=== PATIENT | female | born 1980 | race Caucasian/White ===

== ENCOUNTER 2017-01-21 06:28 | Inpatient (IN) | payer OTHER ==
[~2017-01-21] VITALS: Ht 180.3 cm; Wt 98.7 kg
[~2017-01-21 06:28] MED LIST: CYCL-259 PO; DICLOFENAC PO; TRAM50TA2 PO
[2017-01-21 06:59] LABS: HCG UR LOT HCG7030192
[2017-01-21] MEDS ORDERED: LACTATED RINGERS 1,000 ML IV SCH (07:00)
[2017-01-21 07:03] LABS: HCG UR OBC PASS
[2017-01-21] MEDS ORDERED: BUPIVACAINE/PF 0.5% ONE (07:05)
[2017-01-21] MEDS ORDERED: EPINEPHRINE 1 MG/ML, 1ML ONE (07:05)
[2017-01-21] MEDS ORDERED: THROMBIN 5,000 UNIT VIAL TP ONE (07:05)
[2017-01-21] MEDS ORDERED: LIDOCAINE 1%, 2ML ONE (07:05)
[2017-01-21] MEDS ORDERED: BACITRACIN 50,000 UNIT ONE (07:06)
[2017-01-21] MEDS ORDERED: LIDOCAINE 1%, 2ML SQ PRN (07:30)
[2017-01-21] MEDS ORDERED: FENTANYL PF 100 MCG/2ML ONE ×4 (08:42→12:31)
[2017-01-21] MEDS ORDERED: MIDAZOLAM 1 MG/ML, 2ML ONE (08:43)
[2017-01-21] MEDS ORDERED: CEFAZOLIN 1,000 MG ONE ×2 (08:44)
[2017-01-21] MEDS ORDERED: PROPOFOL 10 MG/ML, 20ML ONE (08:44)
[2017-01-21] MEDS ORDERED: ROCURONIUM 10 MG/ML,10ML ONE ×2 (08:44→09:31)
[2017-01-21] MEDS ORDERED: NEOSTIGMINE 1 MG/ML, 10ML ONE (08:45)
[2017-01-21] MEDS ORDERED: GLYCOPYRROLATE 0.4 MG/2 ML, 2ML ONE ×2 (08:45)
[2017-01-21] MEDS ORDERED: DEXAMETHASONE 4 MG/ML, 1ML ONE ×2 (08:46)
[2017-01-21] MEDS ORDERED: ONDANSETRON 2MG/ML, 2ML ONE (08:46)
[2017-01-21] MEDS ORDERED: FENTANYL PF 100 MCG/2ML IV PRN (09:30)
[2017-01-21] MEDS ORDERED: OXYcodone 5 MG/5 ML ORAL.SOL UDC PO PRN (09:30)
[2017-01-21] MEDS ORDERED: ONDANSETRON 2MG/ML, 2ML IVPush PRN (09:30)
[2017-01-21] MEDS ORDERED: PROMETHAZINE 25 MG/ML, 1ML IV PRN (09:30)
[2017-01-21] MEDS ORDERED: ACETAMINOPHEN 325 MG TABLET PO PRN (09:30)
[2017-01-21] MEDS ORDERED: HYDROmorphone 1 MG/ML, 1ML ONE (11:28)
[2017-01-21] MEDS ORDERED: OXYcodone 5 MG/5 ML ORAL.SOL UDC ONE (11:28)
[2017-01-21] MEDS: HYDROmorphone 1 MG/ML, 1ML IV PRN ×3 (11:30→12:00)
[2017-01-21] MEDS ORDERED: METOPROLOL 1 MG/ML, 5ML ONE (12:30)
[2017-01-21] MEDS ORDERED: CEFAZOLIN PMX 1GM/50ML 50 ML IVPB SCH (13:00)
[2017-01-21] MEDS ORDERED: DIPHENHYDRAMINE 50 MG/ML, 1ML IM PRN (13:00)
[2017-01-21] MEDS ORDERED: PROMETHAZINE 25 MG/ML, 1ML IM PRN (13:00)
[2017-01-21] MEDS ORDERED: HYDROmorphone 2MG TABLET PO PRN (13:00)
[2017-01-21] MEDS ORDERED: DIPHENHYDRAMINE 50 MG/ML, 1ML IVPush PRN (13:00)
[2017-01-21] MEDS ORDERED: HYDROcodone/APAP 5/325 TABLET PO PRN (13:00)
[2017-01-21] MEDS ORDERED: ONDANSETRON 2MG/ML, 2ML IV PRN (13:00)
[2017-01-21] MEDS ORDERED: BISACODYL 10 MG SUPP PR PRN (13:00)
[2017-01-21] MEDS ORDERED: DIPHENHYDRAMINE 50 MG CAPSULE PO PRN (13:00)
[2017-01-21] MEDS ORDERED: MAGNESIUM HYDROXIDE 8%, 30ML UDC PO PRN (13:00)
[2017-01-21 13:35] VITALS: BP 119/63
[2017-01-21] MEDS: NS + 20MEQ KCL 1,000 ML IV SCH (14:56)
[2017-01-21] MEDS ORDERED: OXYcodone/APAP 5/325MG TABLET PO PRN (15:30)
[2017-01-21] MEDS: CEFAZOLIN PMX 1GM/50ML 50 ML IVPB SCH (18:02)
[2017-01-21] MEDS: CYCLOBENZAPRINE 10 MG TABLET PO PRN (19:34)
[2017-01-21 21:08] VITALS: BP 112/59
[2017-01-21] MEDS: HYDROmorphone 2 MG/ML, 1ML IM PRN (22:10)
[2017-01-22 00:09] VITALS: BP 106/53
[2017-01-22] MEDS: NS + 20MEQ KCL 1,000 ML IV SCH ×2 (01:30→14:00)
[2017-01-22] MEDS: HYDROmorphone 2 MG/ML, 1ML IM PRN (02:37)
[2017-01-22] MEDS: CEFAZOLIN PMX 1GM/50ML 50 ML IVPB SCH (02:37)
[2017-01-22 03:57] VITALS: BP 112/55
[2017-01-22 07:00] VITALS: BP 88/40
[2017-01-22] MEDS: SENNA/DOCUSATE TABLET PO SCH (09:17)
[2017-01-22 12:46] VITALS: BP 96/57
[2017-01-22] MEDS: HYDROmorphone 2MG TABLET PO PRN ×3 (14:40→22:46)
[2017-01-22 18:43] VITALS: BP 107/70
[2017-01-22] MEDS: CYCLOBENZAPRINE 10 MG TABLET PO PRN (21:24)
[2017-01-23] MEDS: NS + 20MEQ KCL 1,000 ML IV SCH (02:30)
[2017-01-23] MEDS: HYDROmorphone 2MG TABLET PO PRN ×2 (02:47→06:40)
[2017-01-23 02:53] VITALS: BP 98/57
[2017-01-23 08:30] VITALS: BP 111/75
[2017-01-23] MEDS: SENNA/DOCUSATE TABLET PO SCH (08:54)
[2017-01-23] MEDS ORDERED: OXYcodone/APAP 7.5/325MG TABLET PO PRN (09:30)
[2017-01-23] MEDS ORDERED: DIAZEPAM 5 MG TABLET PO PRN (09:30)
[2017-01-23] MEDS ORDERED: SENN1TAB7 PO (10:49)
[2017-01-23] MEDS ORDERED: MORP-52 PO (10:50)
[2017-01-23] MEDS ORDERED: OXYC-307 PO (10:51)
[2017-01-23] MEDS ORDERED: DIAZ5TAB PO (10:52)
[2017-01-23 11:49] VITALS: BP 112/75
== END 2017-01-23 12:25 | disposition home or self-care (01) | DRG 520 ==
LOC: OUT 06:28 → 4NOR 12:33 → OUT 13:02 → 4NOR 01-22 06:35 → DCLOUNGE 01-23 11:59
PROVIDERS: ADMIT Neurological Surgery; ATTEND Neurological Surgery
PROC: 0SB20ZZ Excision of Lumbar Vertebral Disc, Open Approach (ICD-10-PCS; 2017-01-21)
PROC: 01NR0ZZ Release Sacral Nerve, Open Approach (ICD-10-PCS; 2017-01-21)
PROC: 01NB0ZZ Release Lumbar Nerve, Open Approach (ICD-10-PCS; principal; 2017-01-21 09:30)
DX: M51.17 Intervertebral disc disorders with radiculopathy, lumbosacral region (principal); M47.816 Spondylosis without myelopathy or radiculopathy, lumbar region; M48.061 Spinal stenosis, lumbar region without neurogenic claudication; M54.16 Radiculopathy, lumbar region; T39.1X5A Adverse effect of 4-Aminophenol derivatives, initial encounter; T40.2X5A Adverse effect of other opioids, initial encounter; Z91.040 Latex allergy status
CPT/HCPCS: 72100; 81025; J0171; J0690; J1100; J1170; J2250; J2270; J2405; J2704; J2710; J3010; J3480; J3490; J7120